=== PATIENT | female | born 1955 | race Two or more races ===

== ENCOUNTER 2023-04-21 15:25 | Emergency (ER) | payer OTHER, BC ==
[~2023-04-21] VITALS: Ht 157.5 cm; Wt 59.0 kg
[2023-04-21] MEDS ORDERED: VITAMIN D310 MCG/1 M PO (16:04)
[2023-04-21 18:21] LABS: HEMATOCRIT 39.6 % (36.0-45.00); HEMOGLOBIN 13.4 g/dL (12.0-15.00); MEAN CELL VOLUME 89.5 fL (80.00-100.00); MEAN CORPUSCULAR HEMOGLOBIN 30.2 pg (27.00-32.0); MEAN CORPUSCULAR HGB CONC 33.8 g/dl (32.0-36.0); PLATELET COUNT 238 K/uL (150-450); RED BLOOD COUNT 4.42 M/uL (4.00-6.00); RED CELL DISTRIBUTION WIDTH 13.1 % (11.5-14.5)
[2023-04-21 18:43] LABS: CALCIUM 9.3 mg/dL (8.5-10.1); CREATININE SERUM 0.9 mg/dL (0.55-1.02); GFR 62.64; POTASSIUM 4.1 mEq/L (3.5-5.1)
== END 2023-04-21 19:56 | disposition home or self-care (01) ==
LOC: ER 15:26
PROVIDERS: General Practice
DX: H35.9 Unspecified retinal disorder (principal); Z91.013 Allergy to seafood